=== PATIENT | male | born 1940 | race African-American/Black ===

== ENCOUNTER 2017-04-17 11:36 | Inpatient (IN) | payer MEDICARE, OTHER ==
[~2017-04-17] VITALS: Ht 170.2 cm; Wt 72.6 kg
[~2017-04-17 11:36] MED LIST: ARICEPT5 MG ORAL; ATIVAN1 MG PO; AZITHROMYCIN250 MG ORAL; BACTROBAN 2% OI15 GM TOPIC; DEPAKENE250 MG/5 M PO; DSS100 MG ORAL; FERROUS SULFAT325 MG ORAL; GLUCOPHAGE500 MG ORAL; HPN PO; LANTUS5 UNITS SUBQ; LEVEMIR100 UNIT/1 SUBQ; LISINOPRIL20 MG ORAL; METOPROLOL TAR100 MG PO; MIRTAZAPINE7.5 MG ORAL; NORVASC10 MG ORAL; NOVOLIN R100 UNIT/1 SUBQ; PROAIR HFA8.5 GM INH; PROMETHAZINE-C118 M1 ORAL; TYLENOL 8 HOUR650 M1 ORAL; VIMPAT150 MG PO
[2017-04-17 11:40] VITALS: BP 132/74
[2017-04-17] MEDS ORDERED: Vancomycin 1 GM in NS 275 ML IV ONE (11:45)
[2017-04-17] MEDS ORDERED: Vancomycin 1gm inj IVPB ONE (12:19)
[2017-04-17 12:52] LABS: MEAN CORPUSCULAR HEMOGLOBIN 27.4 PG (27.0-31.0); MEAN CORPUSCULAR HGB CONC 29.9 G/DL (32.0-36.0); MEAN CORPUSCULAR VOLUME 92 FL (80-99); MEAN PLATELET VOLUME 7.9 FL (6.5-10.1); PLATELET COUNT 309 K/UL (150-450); RED BLOOD COUNT 5.47 M/UL (4.70-6.10); RED CELL DISTRIBUTION WIDTH 16.2 % (11.6-14.8)
[2017-04-17 13:00] LABS: WHITE BLOOD COUNT 25.4 K/UL (4.8-10.8)
[2017-04-17 13:04] LABS: APPEARANCE,URINE TURBID; KETONES,URINE 1+ (NEGATIVE); LEUKOCYTE ESTERASE ,URINE 3+ (NEGATIVE); NITRITE,URINE NEGATIVE (NEGATIVE); PH,URINE 7 (4.5-8.0); PROTEIN,URINE 3+ (NEGATIVE); UROBILINOGEN,URINE NORMAL MG/DL (0.0-1.0)
--- NOTE | 2017-04-17 13:06 | Emergency Room Report ---
History of Present Illness General Chief Complaint: Abnormal Labs Source: Patient, Medical Record, PMD Present Illness HPI 77YOM male sent by PMD Dr Aguilar for concern for UTI with + proteus and MRSA Patient has no complaints Feels well otherwise Paperwork from SNF shows Urine Cx recent with + proteus and MRSA. Susceptible to Vanc/Zosyn per outside Culture sensitivity Allergies: Coded Allergies: No Known Allergies (Unverified , 01/20/13) Patient History Past Medical History: see triage record Past Surgical History: none Pertinent Family History: none Immunizations: UTD Reviewed Nursing Documentation: PMH: Agreed, PSxH: Agreed Nursing Documentation-PMH Hx Cardiac Problems: Yes Hx Hypertension: Yes Hx COPD: Yes Hx Diabetes: Yes Hx Cancer: No - / PT DENIES, ALTHO IN MEDICAL RECORD Hx Gastrointestinal Problems: No Hx Neurological Problems: Yes Hx Cerebrovascular Accident: Yes - INTRACRANIAL HEMORRHAGE Hx Dementia: Yes Hx Seizures: Yes Hx Dizziness: Yes Hx Syncope: Yes Hx Weakness: Yes Review of Systems All Other Systems: negative except mentioned in HPI Physical Exam Vital Signs Date Time Temp Pulse Resp B/P (MAP) Pulse Ox O2 Delivery O2 Flow Rate FiO2 04/17/17 11:30 98.2 109 20 150/91 97 Room Air Sp02 EP Interpretation: reviewed, normal General Appearance: normal inspection, well appearing, no apparent distress, alert, GCS 15, non-toxic Head: normocephalic, atraumatic Eyes: bilateral eye PERRL, bilateral eye EOMI ENT: normal ENT inspection, hearing grossly normal, normal voice Neck: normal inspection, full range of motion, supple, no bony tend Respiratory: normal inspection, lungs clear, normal breath sounds, no respiratory distress, no retraction, no wheezing Cardiovascular #1: regular rate, rhythm, no edema Gastrointestinal: normal inspection, normal bowel sounds, non tender, soft, no guarding, no hernia Genitourinary: no CVA tenderness Musculoskeletal: normal inspection, back normal, normal range of motion, Catherine' s Sign negative Neurologic: normal inspection, alert, responsive, senior asset manager III-XII nml as tested, motor strength/tone normal, speech normal Psychiatric: normal inspection, judgement/insight normal, mood/affect normal Skin: normal inspection, normal color, no rash Medical Decision Making Medicare Attestation I Brian Min MD hereby attest that the medical record entry for date of service, 04/17/17 accurately reflects signatures/notations that I made in my capacity as MD when I treated/diagnosed the above listed Medicare beneficiary. I attest that this information is true, accurate and complete to the best of my knowledge. I understand that any falsification, omission, or concealment of material fact may subject me to administrative, civil, or criminal liability. This patient warrants hospital admission for extreme of age and has a condition that cannot be treated as outpatient. Diagnostic Impression: Primary Impression: UTI (urinary tract infection) Qualified Codes: N30.01 - Acute cystitis with hematuria Additional Impressions: Sepsis Qualified Codes: A41.9 - Sepsis, unspecified organism PROSPER (acute kidney injury) ER Course Urosepsis Known UTI with sensitivies down outside hospital Here, tachycardia, fever, known infection Sepsis criteria met Blood, Urine Cx pending Leuks >20K, elevated lactate. ?PROSPER vs prosper on CKD. IVF 30cc/kg bolus and tylenol given Endorsed Dr Aguilar for tele admit at 104pm EKG Diagnostic Results Rate: tachycardiac Rhythm: NSR ST Segments: no acute changes ASA given to the pt in ED: No Rhythm Strip Diag. Results EP Interpretation: yes Rate: 103 Rhythm: NSR, no PVC's, no ectopy Chest X-Ray Diagnostic Results Chest X-Ray Diagnostic Results : Chest X-Ray Ordered: Yes # of Views/Limited/Complete: 1 View Indication: Other - Sepsis EP Interpretation: Yes Interpretation: no consolidation, no effusion, no pneumothorax, no acute cardiopulmonary disease Impression: No acute disease Electronically Signed by: Dr Brian Min MD Last Vital Signs Date Time Temp Pulse Resp B/P (MAP) Pulse Ox O2 Delivery O2 Flow Rate FiO2 04/17/17 11:40 100.1 105 21 132/74 97 Room Air Status: improved Disposition: ADMITTED INPATIENT Condition: Serious Referrals: Kortney Huynh MD (PCP) BRIAN MIN M.D. Apr 17, 2017 13:06
[2017-04-17 13:16] LABS: REFLEX LACTIC ACID YES OR NO YES
[2017-04-17 13:19] LABS: ANION GAP 15 mmol/L (5-15); CALCIUM 9.2 MG/DL (8.5-10.1); CARBON DIOXIDE 26 MMOL/L (21-32); CHLORIDE 103 MMOL/L (98-107); CREATININE 1.4 MG/DL (0.55-1.30); POTASSIUM 4.6 MMOL/L (3.5-5.1); SODIUM 144 MMOL/L (136-145)
[2017-04-17 13:27] LABS: ALANINE AMINOTRANSFERASE 28 U/L (12-78); ALBUMIN/GLOBULIN RATIO 0.5 (1.0-2.7); ASPARTATE AMINO TRANSFERASE 24 U/L (15-37); CKMB 0.6 NG/ML (0.0-3.6); TOTAL PROTEIN 8.8 G/DL (6.4-8.2)
[2017-04-17 13:31] LABS: BACTERIA,URINE MANY /HPF; RBC,URINE 30-40 /HPF (0 - 0); SQUAMOUS EPITHELIAL CELL,UR FEW /LPF (NONE/OCC); WBC,URINE 40-60 /HPF (0 - 0)
[2017-04-17 13:32] LABS: TRIPLE PHOSPHATE CRYSTAL,UR MANY /LPF
[2017-04-17] MEDS ORDERED: UNOBMED (13:34)
[2017-04-17 13:38] LABS: ANISOCYTOSIS 1+; BAND NEUTROPHILS % (MANUAL) 1 % (0-8); BASOPHILS % (MANUAL) 0 % (0-2); EOSINOPHILS % (MANUAL) 0 % (0-3); LYMPHOCYTES % (MANUAL) 12 % (20-45); NEUTROPHILS % (MANUAL) 80 % (45-75); PLATELET ESTIMATE ADEQUATE; PLATELET MORPHOLOGY NORMAL; TOTAL CELLS COUNTED 100
[2017-04-17 13:40] VITALS: BP 140/78
--- NOTE | 2017-04-17 13:58 | Diagnostic Imaging Report ---
Indication: Cough Technique: One view of the chest Comparison: 01/04/2016 Findings: Lungs and pleural spaces are clear. Heart size is normal. No significant change Impression: No acute process
[2017-04-17] MEDS ORDERED: Piperacillin/Tazobactam 4.5 GM in NS 110 ML IV SCH (14:00)
[2017-04-17 15:48] VITALS: BP 124/70
[2017-04-17] MEDS: LORazepam 1mg tab ORAL SCH (17:45)
[2017-04-17 20:00] VITALS: BP 125/86
[2017-04-17] MEDS: Donepezil 5mg Tab ORAL SCH (21:55)
[2017-04-18] VITALS: BP 134/78
[2017-04-18 04:00] VITALS: BP 117/73
[2017-04-18 07:47] LABS: BASOPHILS % (AUTO) 1.1 % (0.0-2.0); EOSINOPHILS % (AUTO) 1.3 % (0.0-3.0); LYMPHOCYTES % (AUTO) 14.3 % (20.0-45.0); MEAN CORPUSCULAR HEMOGLOBIN 29.2 PG (27.0-31.0); MEAN CORPUSCULAR HGB CONC 31.9 G/DL (32.0-36.0); MEAN CORPUSCULAR VOLUME 92 FL (80-99); MEAN PLATELET VOLUME 7.5 FL (6.5-10.1); MONOCYTES % (AUTO) 10.6 % (1.0-10.0); NEUTROPHILS % (AUTO) 72.7 % (45.0-75.0); PLATELET COUNT 261 K/UL (150-450); RED BLOOD COUNT 3.83 M/UL (4.70-6.10); RED CELL DISTRIBUTION WIDTH 16.3 % (11.6-14.8); WHITE BLOOD COUNT 16.2 K/UL (4.8-10.8)
[2017-04-18 08:08] LABS: ANION GAP 8 mmol/L (5-15); CALCIUM 8.8 MG/DL (8.5-10.1); CARBON DIOXIDE 30 MMOL/L (21-32); CHLORIDE 107 MMOL/L (98-107); CREATININE 1.3 MG/DL (0.55-1.30); POTASSIUM 3.7 MMOL/L (3.5-5.1); SODIUM 145 MMOL/L (136-145)
[2017-04-18 08:14] VITALS: BP 130/68
--- NOTE | 2017-04-18 08:15 | History and Physical Report ---
DATE OF ADMISSION: 04/17/2017 REASON FOR ADMISSION: Recent urinary tract infection. The patient has advanced dementia, is a poor historian, cannot rely upon his history. The patient grew multiple organisms at the snf which was resistant to most antibiotics. The patient is admitted for IV antibiotics. Again, cannot obtain any further history from the patient. PAST MEDICAL HISTORY: Advanced dementia, iron-deficiency anemia, seizure disorder, anxiety, depression, GERD, history of borderline diabetes, history of sinus bradycardia, history of hyperkalemia, history of chronic renal failure, history of syncope, and hypertension. PAST SURGICAL HISTORY: Denies. MEDICATIONS: Colace, donepezil, ferrous sulfate, lisinopril, lorazepam, mirtazapine, and Depakote. ALLERGIES: No known allergies. FAMILY HISTORY: Noncontributory. SOCIAL HISTORY: Denies smoking, alcohol, or illicit drugs. He lives in a snf. REVIEW OF SYSTEMS: HEENT: Denies headaches. RESPIRATORY: Denies shortness of breath. Denies cough. CARDIOVASCULAR: Denies chest pain. GASTROINTESTINAL: Denies nausea, vomiting, or diarrhea. EXTREMITIES: Denies pain. CENTRAL NERVOUS SYSTEM: No change in vision or speech pattern, however, he is a poor historian. PHYSICAL EXAMINATION: VITAL SIGNS: Temperature is 100.1, pulse is 105, and blood pressure 132/74. HEENT: PERRLA. NECK: Supple. No lymphadenopathy. CHEST: Clear to auscultation. GASTROINTESTINAL: Soft, nontender, and nondistended. No organomegaly. EXTREMITIES: Reflexes are equal on both sides. Moves all 4 extremities. LABORATORY DATA: WBC of , hemoglobin 15, and platelets 309,000. Sodium 144, potassium 4.6, BUN of 39, and creatinine 1.5. ASSESSMENT: Sepsis. PLAN: will see the patient for sepsis. I have asked Dr. Cunningham to see the patient for azotemia. . patient's adjustment to multiple antibiotics and we will defer the decision making of antibiotics to . Kortney Huynh M.D. DR: QAMAR JOB#: [id number] CC:
--- NOTE | 2017-04-18 08:16 | Consultation ---
DATE OF CONSULTATION: 04/17/2017 HEMATOLOGY/ONCOLOGY CONSULTATION REASON FOR CONSULTATION: Evaluation of leukocytosis. IDENTIFICATION DATA: Dear Dr. Huynh, The patient is a pleasant 77-year-old male with a past medical history, which is significant for history of UTI as well as CEA, intracranial hemorrhage history, history of diabetes mellitus, COPD as well as hypertension, and seizure history in the past, at this time presents to the hospital with most likely sepsis, noted to have a UTI with Proteus, MRSA. Infectious Diseases service was consulted for further evaluation and treatment. Hematology service was consulted inpatient for leukocytosis to rule out any potential cause or any other contributing factor such as leukemia. PAST MEDICAL HISTORY: Diabetes mellitus, hypertension, COPD, seizure disorder, intracranial hemorrhage, and dementia. PAST SURGICAL HISTORY: None noted. MEDICATIONS: Have been reviewed, mupirocin, ferrous sulfate, valproic acid, , Tylenol, lisinopril, Colace, , amiodarone, promethazine, and Zithromax. SOCIAL HISTORY: Resident of a penit[facility]iary facility. No alcohol, tobacco, or illicit drug use. REVIEW OF SYSTEMS: CONSTITUTIONAL: No fever, chills, or night sweats. SKIN: No rashes, bumps, or itching. HEENT: No headache, hearing or vision changes. BREASTS: No lumps, pain, or discharge. PULMONARY: No cough, sputum, or shortness of breath. GASTROINTESTINAL: No nausea, vomiting, or diarrhea. GENITOURINARY: No dysuria, frequency, or urgency. MUSCULOSKELETAL: No joint swelling, muscle pain, or trauma. PHYSICAL EXAMINATION: GENERAL: No acute distress. VITAL SIGNS: Reviewed. PULMONARY: Decreased breath sounds. CARDIOVASCULAR: Regular rate. No S3 or S4. ABDOMEN: Soft, nontender, and nondistended. EXTREMITIES: A 1+ edema. LABORATORY DATA: WBC 25,000, hemoglobin 15, hematocrit 50, and platelet count 309,000. ASSESSMENT AND RECOMMENDATIONS: 1. Leukocytosis, most likely secondary to infectious etiology of urinary tract infection, currently on antibiotics. 2. Anemia secondary to chronic disease history. In the past, hemoglobin has been 9, currently improved, currently on 15, likely secondary to hemoconcentration. 3. Diabetes mellitus. Continue to maintain blood sugar between 80 and 120. A1c obtained. 4. Hypertension, currently better controlled. 5. Chronic obstructive pulmonary disease. 6. Seizure disorder. Continue to closely monitor. I appreciate the consultation. Miguelito Mayen M.D. DR: DEEP JOB#: [id number] CC:
[2017-04-18] MEDS: LORazepam 1mg tab ORAL SCH ×2 (09:59→18:15)
[2017-04-18] MEDS: Valproic Acid 250mg/5ml Liquid NG SCH ×3 (10:00→16:44)
--- NOTE | 2017-04-18 11:07 | Wound Care Consultation ---
Wound Assessment Wound Assessment #1: Wound Number: 1 Wound Present on Admission: Yes New Wound: No Status Change of Wound: No Wound Location Body Site Modif: mid Wound Location Body Site: sacral Wound Type: pressure ulcer Glen Test: Does not Glen Pressure Ulcer Stage: Unstageable Wound Thickness: Full Thickness Wound Length: 2.0 Wound Width: 2.5 Wound Depth: utd Percent of Wound [place]/Red: 30 Percent of Wound Bed Yellow/Wh: 50 Percent of Wound Purple/Maroon: 20 Wound Drainage Description: Serosanguineous Wound Drainage Amount: Moderate Wound Drainage Odor: None/Absent Tissue Surrounding Wound: Macerated Wound General Appearance: Reddened - yellow Wound Assessment #2: Wound Number: 2 Wound Present on Admission: Yes New Wound: No Status Change of Wound: No Wound Location Body Site Modif: right Wound Location Body Site: heel Wound Type: pressure ulcer Glen Test: Does not Glen Pressure Ulcer Stage: Deep Tissue Injury Wound Thickness: Full Thickness Wound Length: 2.5 Wound Width: 2.0 Wound Depth: utd Percent of Wound Purple/Maroon: 100 Wound Drainage Amount: None Wound Drainage Odor: None/Absent Tissue Surrounding Wound: Intact Wound General Appearance: Reddened Wound Comment #1 Sacral unstageable pressure ulcer #2 Right heel DTI pressure ulcer Recommendation - Sacral unstageable pressure ulcer, Cleanse with saline, pat dry, apply Therahoney gel to wound bed, cover with Biatain silicone drg daily and PRN soiled/dislodged -Local wound care per protocol for DTI pressure ulcer -Keep clean and dry -Turn and reposition -Optimize nutrition -Offload both heels -Heel protector on both heels -Low air loss mattress -Assess and f/u accordingly for any changes HAYLEE HORVATH RN Apr 18, 2017 11:07
[2017-04-18 11:19] VITALS: BP 144/79
[2017-04-18 12:49] LABS: OTHERS PATHOLOGIST COMMENT
[2017-04-18] MEDS ORDERED: Vancomycin 1250mg/D5W 250ml IVPB SCH (14:00)
[2017-04-18 16:00] VITALS: BP 147/68
--- NOTE | 2017-04-18 16:18 | General Progress Note ---
Assessment/Plan Assessment/Plan ASSESSMENT AND RECOMMENDATIONS: 1. Leukocytosis, most likely secondary to infectious etiology of urinary tract infection, currently on antibiotics. Has improved. 2. Anemia secondary to chronic disease history. 3. Diabetes mellitus. Continue to maintain blood sugar between 80 and 120. A1c obtained. 4. Hypertension, currently better controlled. 5. Chronic obstructive pulmonary disease. 6. Seizure disorder. Continue to closely monitor. Subjective ROS Limited/Unobtainable: Yes Allergies: Coded Allergies: No Known Allergies (Unverified , 01/20/13) Subjective sleeping Objective Last 24 Hour Vital Signs Date Time Temp Pulse Resp B/P (MAP) Pulse Ox O2 Delivery O2 Flow Rate FiO2 04/18/17 16:00 97.2 91 20 147/68 96 Room Air 04/18/17 12:00 85 04/18/17 11:19 96.3 86 20 144/79 99 Room Air 04/18/17 10:00 79 130/68 04/18/17 08:14 96.6 79 20 130/68 99 Room Air 04/18/17 08:00 87 04/18/17 04:00 97.9 87 20 117/73 100 Room Air 04/18/17 03:46 84 04/18/17 00:00 98.2 90 19 134/78 99 Room Air 04/17/17 23:50 97 04/17/17 20:00 98.2 88 19 125/86 98 Room Air 04/17/17 19:53 87 Intake and Output 04/18/17 04/19/17 19:00 07:00 # Bowel Movements 1 Laboratory Tests 04/18/17 07:00: White Blood Count 16.2H, Red Blood Count 3.83L, Hemoglobin 11.2L, Hematocrit 35.1#L, Mean Corpuscular Volume 92, Mean Corpuscular Hemoglobin 29.2, Mean Corpuscular Hemoglobin Concent 31.9L, Red Cell Distribution Width 16.3H, Platelet Count 261, Mean Platelet Volume 7.5, Neutrophils (%) (Auto) 72.7, Lymphocytes (%) (Auto) 14.3L, Monocytes (%) (Auto) 10.6H, Eosinophils (%) (Auto ) 1.3, Basophils (%) (Auto) 1.1, Sodium Level 145, Potassium Level 3.7, Chloride Level 107, Carbon Dioxide Level 30, Anion Gap 8, Blood Urea Nitrogen 27H, Creatinine 1.3, Estimat Glomerular Filtration Rate , Glucose Level 121H, Calcium Level 8.8 Height (Feet): 5 Height (Inches): 7.00 Weight (Pounds): 160 General Appearance: no apparent distress EENT: normal ENT inspection Neck: non-tender, normal alignment Cardiovascular: normal peripheral pulses, no gallop/murmur Respiratory/Chest: decreased breath sounds Abdomen: non tender Extremities: non-tender Miguelito Mayen Apr 18, 2017 16:18
--- NOTE | 2017-04-18 17:15 | Consultation ---
DATE OF CONSULTATION: INFECTIOUS DISEASE CONSULTATION CONSULTING PHYSICIAN: Shaun Lucero M.D. This consultation is for coverage of Dr. Montanez. PRIMARY ATTENDING PHYSICIAN: Kortney Huynh M.D. REASON FOR CONSULTATION: Urinary tract infection. HISTORY OF PRESENT ILLNESS: This is a 77-year-old male admitted yesterday from a alf facility. The patient apparently had a recent urine culture that grew MRSA and Proteus mirabilis. He has suprapubic catheter. The patient had low-grade fever of 101.1 degrees at the time admission. Also, had significant leukocytosis. PAST MEDICAL HISTORY: Significant for dementia, diabetes mellitus, hypertension, anemia, history of suprapubic catheter. MEDICATIONS: The patient got a dose of vancomycin and Zosyn in the ER. Current medications are ferrous sulfate, multivitamin, amlodipine, valproic acid, Protonix, Aricept, Keppra, Remeron, Seroquel, lorazepam, Tylenol. ALLERGIES: No known drug allergies. SOCIAL HISTORY: long term resident. No other history obtainable. He is a . PHYSICAL EXAMINATION: GENERAL APPEARANCE: No acute distress, alert and oriented to himself only. VITAL SIGNS: Temperature 96.3 degrees, pulse 86, blood pressure 144/79. HEAD AND NECK: [place] conjunctivae. HEART: Regular. LUNGS: Clear. ABDOMEN: Soft and nontender. There is a suprapubic catheter in place. EXTREMITIES: There is no edema. The patient has peripheral line. LABORATORY AND DIAGNOSTIC DATA: WBC today is 16.2 coming down from 25.4, hemoglobin 11.2, hematocrit 35.1, platelets 261. Chest x-ray did not show any acute process. Sodium is 145, potassium 3.7, chloride 107, bicarbonate 30, BUN 27, creatinine 1.3, glucose 121. Lactic acid was 3.9 that came to 1.9. Urine culture growing gram-negative bacilli IMPRESSION: Complicated urinary tract infection. The patient has suprapubic catheter. The patient has low-grade fever and leukocytosis, has advanced Alzheimer dementia, anemia, acute renal failure, chronic kidney disease, and hypertension. RECOMMENDATION: We will start the patient on ceftriaxone and vancomycin. We will followup the cultures At the end of my exam, I thank Dr. Huynh for involving me in the care of this patient. Shaun Lucero M.D. DR: Jacquelin JOB#: [id number] CC:
[2017-04-18] MEDS: cefTRIAXone 1 GM in D5W 55 ML IVPB SCH (18:05)
[2017-04-18 20:02] VITALS: BP 129/77
--- NOTE | 2017-04-18 20:38 | General Progress Note ---
Assessment/Plan Problem List: (1) UTI (urinary tract infection) ICD Codes: N39.0 - Urinary tract infection, site not specified SNOMED: 79385797 Qualifiers: Qualified Codes: N30.01 - Acute cystitis with hematuria (2) Sepsis ICD Codes: A41.9 - Sepsis, unspecified organism SNOMED: 38106962 Qualifiers: Qualified Codes: A41.9 - Sepsis, unspecified organism (3) PROSPER (acute kidney injury) ICD Codes: N17.9 - Acute kidney failure, unspecified SNOMED: 86593029 Status: progressing Assessment/Plan sepsis and uti abx per id afebrile vitals stable borderline dm no acute events Subjective ROS Limited/Unobtainable: Yes Allergies: Coded Allergies: No Known Allergies (Unverified , 01/20/13) Objective Last 24 Hour Vital Signs Date Time Temp Pulse Resp B/P (MAP) Pulse Ox O2 Delivery O2 Flow Rate FiO2 04/18/17 20:02 98.0 82 20 129/77 98 Room Air 04/18/17 16:00 97.2 91 20 147/68 96 Room Air 04/18/17 16:00 89 04/18/17 12:00 85 04/18/17 11:19 96.3 86 20 144/79 99 Room Air 04/18/17 10:00 79 130/68 04/18/17 08:14 96.6 79 20 130/68 99 Room Air 04/18/17 08:00 87 04/18/17 04:00 97.9 87 20 117/73 100 Room Air 04/18/17 03:46 84 04/18/17 00:00 98.2 90 19 134/78 99 Room Air 04/17/17 23:50 97 Intake and Output 04/18/17 04/19/17 19:00 07:00 Intake Total 260 ml Output Total 600 ml Balance -340 ml Intake Oral 260 ml Output Urine Total 600 ml # Bowel Movements 1 Laboratory Tests 04/18/17 07:00: White Blood Count 16.2H, Red Blood Count 3.83L, Hemoglobin 11.2L, Hematocrit 35.1#L, Mean Corpuscular Volume 92, Mean Corpuscular Hemoglobin 29.2, Mean Corpuscular Hemoglobin Concent 31.9L, Red Cell Distribution Width 16.3H, Platelet Count 261, Mean Platelet Volume 7.5, Neutrophils (%) (Auto) 72.7, Lymphocytes (%) (Auto) 14.3L, Monocytes (%) (Auto) 10.6H, Eosinophils (%) (Auto ) 1.3, Basophils (%) (Auto) 1.1, Sodium Level 145, Potassium Level 3.7, Chloride Level 107, Carbon Dioxide Level 30, Anion Gap 8, Blood Urea Nitrogen 27H, Creatinine 1.3, Estimat Glomerular Filtration Rate , Glucose Level 121H, Calcium Level 8.8 Height (Feet): 5 Height (Inches): 7.00 Weight (Pounds): 160 EENT: PERRL/EOMI Neck: supple Cardiovascular: normal rate Kortney Huynh MD Apr 18, 2017 20:38
[2017-04-18] MEDS: Donepezil 5mg Tab ORAL SCH (23:02)
[2017-04-19] VITALS: BP 128/74
[2017-04-19 04:00] VITALS: BP 143/83
[2017-04-19] MEDS: Valproic Acid 250mg/5ml Liquid NG SCH ×3 (06:26→17:18)
[2017-04-19] MEDS: LORazepam 1mg tab ORAL SCH ×2 (09:21→17:18)
[2017-04-19 10:24] LABS: EOSINOPHILS % (AUTO) 1.8 % (0.0-3.0); LYMPHOCYTES % (AUTO) 21.3 % (20.0-45.0); MEAN CORPUSCULAR HEMOGLOBIN 28.5 PG (27.0-31.0); MEAN CORPUSCULAR HGB CONC 30.8 G/DL (32.0-36.0); MEAN CORPUSCULAR VOLUME 93 FL (80-99); MEAN PLATELET VOLUME 8.1 FL (6.5-10.1); MONOCYTES % (AUTO) 9.1 % (1.0-10.0); NEUTROPHILS % (AUTO) 65.7 % (45.0-75.0); PLATELET COUNT 272 K/UL (150-450); RED BLOOD COUNT 3.85 M/UL (4.70-6.10); WHITE BLOOD COUNT 12.2 K/UL (4.8-10.8)
[2017-04-19 10:35] LABS: ANION GAP 10 mmol/L (5-15); CARBON DIOXIDE 30 MMOL/L (21-32); CHLORIDE 105 MMOL/L (98-107); CREATININE 1.2 MG/DL (0.55-1.30); POTASSIUM 3.8 MMOL/L (3.5-5.1); SODIUM 145 MMOL/L (136-145)
--- NOTE | 2017-04-19 11:05 | Infectious Diseases Prog Note ---
Assessment/Plan Assessment/Plan A; Complicated UTI ARF, Chronic kidney disease Alzheimer dementia P; Continue Rocephin, discontinue Vancomycin Will f/u cultures Subjective ROS Limited/Unobtainable: Yes Allergies: Coded Allergies: No Known Allergies (Unverified , 01/20/13) Objective Vital Signs Last 24 Hour Vital Signs Date Time Temp Pulse Resp B/P (MAP) Pulse Ox O2 Delivery O2 Flow Rate FiO2 04/19/17 09:21 77 143/83 04/19/17 04:00 77 04/19/17 04:00 97.7 89 18 143/83 93 Room Air 04/19/17 00:00 98.2 68 18 128/74 99 Room Air 04/19/17 00:00 66 04/18/17 20:02 98.0 82 20 129/77 98 Room Air 04/18/17 20:00 83 04/18/17 16:00 97.2 91 20 147/68 96 Room Air 04/18/17 16:00 89 04/18/17 12:00 85 04/18/17 11:19 96.3 86 20 144/79 99 Room Air Height (Feet): 5 Height (Inches): 7.00 Weight (Pounds): 160 General Appearance: no acute distress HEENT: mucous membranes moist Respiratory/Chest: lungs clear Cardiovascular: normal rate Abdomen: soft, non tender Genitourinary: other - suprapubic catheter Extremities: no edema Neurologic/Psychiatric: other - sleeping Microbiology Date/Time Source Procedure Growth Status 04/17/17 12:30 Blood Blood Culture - Preliminary NO GROWTH AFTER 24 HOURS Resulted 04/17/17 12:15 Blood Blood Culture - Preliminary NO GROWTH AFTER 24 HOURS Resulted 04/17/17 11:55 Urine,Clean Catch Urine Culture - Preliminary Proteus Mirabilis Gram Negative Bacillus 2 Resulted 04/17/17 13:40 Rectum VRE Culture - Final NO VANCOMYCIN RESISTANT ENTEROCOCCUS ... Complete Laboratory Tests Test 04/19/17 09:40 White Blood Count 12.2 K/UL (4.8-10.8) H Red Blood Count 3.85 M/UL (4.70-6.10) L Hemoglobin 11.0 G/DL (14.2-18.0) L Hematocrit 35.7 % (42.0-52.0) L Mean Corpuscular Volume 93 FL (80-99) Mean Corpuscular Hemoglobin 28.5 PG (27.0-31.0) Mean Corpuscular Hemoglobin Concent 30.8 G/DL (32.0-36.0) L Red Cell Distribution Width 16.0 % (11.6-14.8) H Platelet Count 272 K/UL (150-450) Mean Platelet Volume 8.1 FL (6.5-10.1) Neutrophils (%) (Auto) 65.7 % (45.0-75.0) Lymphocytes (%) (Auto) 21.3 % (20.0-45.0) Monocytes (%) (Auto) 9.1 % (1.0-10.0) Eosinophils (%) (Auto) 1.8 % (0.0-3.0) Basophils (%) (Auto) 2.0 % (0.0-2.0) Sodium Level 145 MMOL/L (136-145) Potassium Level 3.8 MMOL/L (3.5-5.1) Chloride Level 105 MMOL/L (98-107) Carbon Dioxide Level 30 MMOL/L (21-32) Anion Gap 10 mmol/L (5-15) Blood Urea Nitrogen 20 mg/dL (7-18) H Creatinine 1.2 MG/DL (0.55-1.30) Estimat Glomerular Filtration Rate mL/min (>60) Glucose Level 126 MG/DL (74-106) H Calcium Level 9.0 MG/DL (8.5-10.1) Current Medications Medications (Trade) Dose Ordered Sig/[place] Route PRN Reason Start Time Stop Time Status Last Admin Dose Admin Acetaminophen (Tylenol) 650 mg Q6H PRN ORAL Mild Pain/Temp > 100.5 04/17/17 17:30 05/17/17 17:29 Amlodipine Besylate (Norvasc) 5 mg DAILY ORAL 04/18/17 09:00 05/18/17 08:59 04/19/17 09:21 Ceftriaxone Sodium 1 gm/ Dextrose 55 ml @ 110 mls/hr Q24H IVPB 04/18/17 17:00 04/25/17 16:59 04/18/17 18:05 Donepezil HCl (Aricept) 5 mg QHS ORAL 04/17/17 21:00 05/17/17 20:59 11/16/17 23:02 Ferrous Sulfate (Feosol) 325 mg DAILY ORAL 04/18/17 09:00 05/18/17 08:59 04/19/17 09:21 Levetiracetam (Keppra) 750 mg Q12HR ORAL 04/17/17 21:00 05/17/17 20:59 04/19/17 09:21 Lorazepam (Ativan) 1 mg BID ORAL 04/17/17 18:00 04/24/17 17:59 04/19/17 09:21 Mirtazapine (Remeron) 7.5 mg BEDTIME ORAL 04/17/17 21:00 05/17/17 20:59 04/18/17 23:02 Multivitamins (Multivitamins) 1 tab DAILY ORAL 04/18/17 09:00 05/18/17 08:59 04/19/17 09:21 Pantoprazole (Protonix) 40 mg BEFORE BREAKFAST ORAL 04/18/17 06:30 05/18/17 06:29 04/19/17 06:26 Quetiapine Fumarate (SEROquel) 12.5 mg BEDTIME ORAL 04/17/17 21:00 05/17/17 20:59 04/18/17 23:03 Valproic Acid (Depakene) 500 mg TIAC NG 04/18/17 08:30 05/18/17 08:29 04/19/17 06:26 Vancomycin HCl (Vanco rx to dose) 1 ea DAILY PRN MISC Per rx protocol 04/18/17 12:45 05/18/17 12:44 Vancomycin HCl/ Dextrose 250 ml @ 166.667 mls/hr Q24H IVPB 04/18/17 14:00 04/23/17 13:59 04/18/17 14:00 DANNI DAO Apr 19, 2017 11:05
[2017-04-19 12:00] VITALS: BP 130/73
[2017-04-19 16:00] VITALS: BP 142/73
--- NOTE | 2017-04-19 17:06 | General Progress Note ---
Assessment/Plan Assessment/Plan ASSESSMENT AND RECOMMENDATIONS: 1. Leukocytosis, most likely secondary to infectious etiology of urinary tract infection, currently on antibiotics. Has improved. 2. Anemia secondary to chronic disease history. Continue to watch counts. 3. Diabetes mellitus. Continue to maintain blood sugar between 80 and 120. A1c obtained. 4. Hypertension, currently better controlled. 5. Chronic obstructive pulmonary disease. 6. Seizure disorder. Continue to closely monitor. Subjective ROS Limited/Unobtainable: Yes Allergies: Coded Allergies: No Known Allergies (Unverified , 01/20/13) Subjective no events overnight, afebrile, no bleeding reported Objective Last 24 Hour Vital Signs Date Time Temp Pulse Resp B/P (MAP) Pulse Ox O2 Delivery O2 Flow Rate FiO2 04/19/17 16:00 96.2 96 19 142/73 97 Room Air 04/19/17 12:00 97.4 85 18 130/73 96 Room Air 04/19/17 12:00 82 04/19/17 09:21 77 143/83 04/19/17 08:00 85 04/19/17 04:00 77 04/19/17 04:00 97.7 89 18 143/83 93 Room Air 04/19/17 00:00 98.2 68 18 128/74 99 Room Air 04/19/17 00:00 66 04/18/17 20:02 98.0 82 20 129/77 98 Room Air 04/18/17 20:00 83 Intake and Output 04/19/17 04/20/17 19:00 07:00 Intake Total 150 ml Output Total 450 ml Balance -300 ml Intake Oral 150 ml Output Urine Total 450 ml Laboratory Tests 04/19/17 09:40: White Blood Count 12.2H, Red Blood Count 3.85L, Hemoglobin 11.0L, Hematocrit 35.7L, Mean Corpuscular Volume 93, Mean Corpuscular Hemoglobin 28.5, Mean Corpuscular Hemoglobin Concent 30.8L, Red Cell Distribution Width 16.0H, Platelet Count 272, Mean Platelet Volume 8.1, Neutrophils (%) (Auto) 65.7, Lymphocytes (%) (Auto) 21.3, Monocytes (%) (Auto) 9.1, Eosinophils (%) (Auto) 1.8, Basophils (%) (Auto) 2.0, Sodium Level 145, Potassium Level 3.8, Chloride Level 105, Carbon Dioxide Level 30, Anion Gap 10, Blood Urea Nitrogen 20H, Creatinine 1.2, Estimat Glomerular Filtration Rate , Glucose Level 126H, Calcium Level 9.0 Height (Feet): 5 Height (Inches): 7.00 Weight (Pounds): 160 General Appearance: no apparent distress EENT: normal ENT inspection Neck: normal alignment Cardiovascular: normal peripheral pulses Respiratory/Chest: chest wall non-tender Abdomen: soft Neurologic: road supervisor II-XII grossly normal Miguelito Mayen Apr 19, 2017 17:06
[2017-04-19] MEDS: cefTRIAXone 1 GM in D5W 55 ML IVPB SCH (17:18)
[2017-04-19 20:00] VITALS: BP 143/73
[2017-04-19] MEDS: Donepezil 5mg Tab ORAL SCH (20:40)
--- NOTE | 2017-04-19 20:55 | General Progress Note ---
Assessment/Plan Problem List: (1) UTI (urinary tract infection) ICD Codes: N39.0 - Urinary tract infection, site not specified SNOMED: 74887212 Qualifiers: Qualified Codes: N30.01 - Acute cystitis with hematuria (2) Sepsis ICD Codes: A41.9 - Sepsis, unspecified organism SNOMED: 35399420 Qualifiers: Qualified Codes: A41.9 - Sepsis, unspecified organism (3) PROSPER (acute kidney injury) ICD Codes: N17.9 - Acute kidney failure, unspecified SNOMED: 42043912 Status: progressing Assessment/Plan sepsis and uti leukocytosis is improving afebrile no acute events reviewed chart and labs Subjective ROS Limited/Unobtainable: Yes Allergies: Coded Allergies: No Known Allergies (Unverified , 01/20/13) Objective Last 24 Hour Vital Signs Date Time Temp Pulse Resp B/P (MAP) Pulse Ox O2 Delivery O2 Flow Rate FiO2 04/19/17 20:00 98.2 99 19 143/73 97 Room Air 04/19/17 16:00 96.2 96 19 142/73 97 Room Air 04/19/17 16:00 82 04/19/17 12:00 97.4 85 18 130/73 96 Room Air 04/19/17 12:00 82 04/19/17 09:21 77 143/83 04/19/17 08:00 85 04/19/17 04:00 77 04/19/17 04:00 97.7 89 18 143/83 93 Room Air 04/19/17 00:00 98.2 68 18 128/74 99 Room Air 04/19/17 00:00 66 Intake and Output 04/19/17 04/20/17 19:00 07:00 Intake Total 300 ml Output Total 450 ml Balance -150 ml Intake Oral 300 ml Output Urine Total 450 ml Laboratory Tests 04/19/17 09:40: White Blood Count 12.2H, Red Blood Count 3.85L, Hemoglobin 11.0L, Hematocrit 35.7L, Mean Corpuscular Volume 93, Mean Corpuscular Hemoglobin 28.5, Mean Corpuscular Hemoglobin Concent 30.8L, Red Cell Distribution Width 16.0H, Platelet Count 272, Mean Platelet Volume 8.1, Neutrophils (%) (Auto) 65.7, Lymphocytes (%) (Auto) 21.3, Monocytes (%) (Auto) 9.1, Eosinophils (%) (Auto) 1.8, Basophils (%) (Auto) 2.0, Sodium Level 145, Potassium Level 3.8, Chloride Level 105, Carbon Dioxide Level 30, Anion Gap 10, Blood Urea Nitrogen 20H, Creatinine 1.2, Estimat Glomerular Filtration Rate , Glucose Level 126H, Calcium Level 9.0 Height (Feet): 5 Height (Inches): 7.00 Weight (Pounds): 160 Cardiovascular: normal rate Respiratory/Chest: lungs clear Kortney Huynh MD Apr 19, 2017 20:55
[2017-04-20] VITALS (7 sets, daily range): BP systolic 123–154; BP diastolic 60–85
[2017-04-20] MEDS: Valproic Acid 250mg/5ml Liquid NG SCH ×3 (06:50→17:43)
[2017-04-20] MEDS: LORazepam 1mg tab ORAL SCH ×2 (09:27→17:42)
--- NOTE | 2017-04-20 10:25 | Infectious Diseases Prog Note ---
"Assessment/Plan Assessment/Plan antibiotics : bactrim A 1. klebsiella | proteus | staph aureus UTI 2. renal failure improving 3. dementia P 1. continue bactrim 2. will follow up cultures Subjective ROS Limited/Unobtainable: Yes Allergies: Coded Allergies: No Known Allergies (Unverified , 01/20/13) Objective Vital Signs Last 24 Hour Vital Signs Date Time Temp Pulse Resp B/P (MAP) Pulse Ox O2 Delivery O2 Flow Rate FiO2 04/20/17 09:28 78 154/85 04/20/17 08:00 75 04/20/17 07:35 97.7 78 19 154/85 Room Air 04/20/17 04:00 97.2 74 20 141/66 97 Room Air 04/20/17 04:00 72 04/20/17 00:00 98.2 90 20 143/73 97 Room Air 04/20/17 00:00 88 04/19/17 20:00 98.2 99 19 143/73 97 Room Air 04/19/17 20:00 88 04/19/17 16:00 96.2 96 19 142/73 97 Room Air 04/19/17 16:00 82 04/19/17 12:00 97.4 85 18 130/73 96 Room Air 04/19/17 12:00 82 Height (Feet): 5 Height (Inches): 7.00 Weight (Pounds): 160 Respiratory/Chest: lungs clear Cardiovascular: normal rate, regular rhythm, no gallop/murmur Abdomen: soft, non tender Extremities: no edema Microbiology Date/Time Source Procedure Growth Status 04/17/17 12:30 Blood Blood Culture - Preliminary NO GROWTH AFTER 48 HOURS Resulted 04/17/17 12:15 Blood Blood Culture - Preliminary NO GROWTH AFTER 48 HOURS Resulted 04/17/17 11:55 Urine,Clean Catch Urine Culture - Preliminary Proteus Mirabilis Klebsiella Pneumoniae Esbl Staphylococcus Aureus Resulted 04/17/17 13:40 Rectum VRE Culture - Final NO VANCOMYCIN RESISTANT ENTEROCOCCUS ... Complete SALVADOR MOLINA Apr 20, 2017 10:25"
[2017-04-20] MEDS ORDERED: NS 275ml ONE (10:50)
[2017-04-20] MEDS: Bactrim DS (160mg/800mg) tab ORAL SCH ×2 (11:22→17:42)
--- NOTE | 2017-04-20 16:31 | General Progress Note ---
Assessment/Plan Problem List: (1) UTI (urinary tract infection) ICD Codes: N39.0 - Urinary tract infection, site not specified SNOMED: 70324713 Qualifiers: Qualified Codes: N30.01 - Acute cystitis with hematuria (2) Sepsis ICD Codes: A41.9 - Sepsis, unspecified organism SNOMED: 37080530 Qualifiers: Qualified Codes: A41.9 - Sepsis, unspecified organism (3) PROSPER (acute kidney injury) ICD Codes: N17.9 - Acute kidney failure, unspecified SNOMED: 59290293 Status: progressing Assessment/Plan sepsis and uti leukocytosis is improving abx per id clinically improving demented Subjective ROS Limited/Unobtainable: Yes Allergies: Coded Allergies: No Known Allergies (Unverified , 01/20/13) Objective Last 24 Hour Vital Signs Date Time Temp Pulse Resp B/P (MAP) Pulse Ox O2 Delivery O2 Flow Rate FiO2 04/20/17 14:57 97.7 93 19 127/60 Room Air 04/20/17 12:09 97.9 77 18 129/77 Room Air 04/20/17 12:00 76 04/20/17 09:28 78 154/85 04/20/17 08:00 75 04/20/17 07:35 97.7 78 19 154/85 Room Air 04/20/17 04:00 97.2 74 20 141/66 97 Room Air 04/20/17 04:00 72 04/20/17 00:00 98.2 90 20 143/73 97 Room Air 04/20/17 00:00 88 04/19/17 20:00 98.2 99 19 143/73 97 Room Air 04/19/17 20:00 88 Height (Feet): 5 Height (Inches): 7.00 Weight (Pounds): 160 General Appearance: confused Kortney Huynh MD Apr 20, 2017 16:31
--- NOTE | 2017-04-20 21:55 | General Progress Note ---
Assessment/Plan Assessment/Plan ASSESSMENT AND RECOMMENDATIONS: 1. Leukocytosis, most likely secondary to infectious etiology of urinary tract infection, currently on antibiotics. Has improved. 2. Anemia secondary to chronic disease history. Continue to watch counts. 3. Diabetes mellitus. Continue to maintain blood sugar between 80 and 120. A1c obtained. 4. Hypertension, currently better controlled. 5. Chronic obstructive pulmonary disease. 6. Seizure disorder. Continue to closely monitor. Subjective Allergies: Coded Allergies: No Known Allergies (Unverified , 01/20/13) All Systems: reviewed and negative except above Subjective afebrile, resting in bed Objective Last 24 Hour Vital Signs Date Time Temp Pulse Resp B/P (MAP) Pulse Ox O2 Delivery O2 Flow Rate FiO2 04/20/17 20:17 97.6 78 18 123/62 96 Room Air 04/20/17 16:33 97.5 77 18 127/60 Room Air 04/20/17 16:00 82 04/20/17 14:57 97.7 93 19 127/60 Room Air 04/20/17 12:09 97.9 77 18 129/77 Room Air 04/20/17 12:00 76 04/20/17 09:28 78 154/85 04/20/17 08:00 75 04/20/17 07:35 97.7 78 19 154/85 Room Air 04/20/17 04:00 97.2 74 20 141/66 97 Room Air 04/20/17 04:00 72 04/20/17 00:00 98.2 90 20 143/73 97 Room Air 04/20/17 00:00 88 Intake and Output 04/20/17 04/21/17 19:00 07:00 Output Total 200 ml Balance -200 ml Output Urine Total 200 ml Height (Feet): 5 Height (Inches): 7.00 Weight (Pounds): 160 General Appearance: no apparent distress EENT: normal ENT inspection Neck: normal alignment Cardiovascular: no gallop/murmur Respiratory/Chest: normal breath sounds Abdomen: no organomegaly Edema: mild edema Skin: warm/dry Miguelito Mayen Apr 20, 2017 21:55
[2017-04-20] MEDS: Donepezil 5mg Tab ORAL SCH (23:11)
[2017-04-21 00:50] VITALS: BP 132/76
[2017-04-21 04:29] VITALS: BP 140/70
[2017-04-21] MEDS: Valproic Acid 250mg/5ml Liquid NG SCH ×3 (06:21→16:37)
[2017-04-21 08:00] VITALS: BP 156/69
[2017-04-21 08:41] LABS: BASOPHILS % (AUTO) 0.9 % (0.0-2.0); EOSINOPHILS % (AUTO) 2.7 % (0.0-3.0); MEAN CORPUSCULAR HGB CONC 30.8 G/DL (32.0-36.0); MEAN CORPUSCULAR VOLUME 91 FL (80-99); MEAN PLATELET VOLUME 7.4 FL (6.5-10.1); MONOCYTES % (AUTO) 11.6 % (1.0-10.0); NEUTROPHILS % (AUTO) 62.8 % (45.0-75.0); PLATELET COUNT 265 K/UL (150-450); RED BLOOD COUNT 4.28 M/UL (4.70-6.10); RED CELL DISTRIBUTION WIDTH 15.4 % (11.6-14.8); WHITE BLOOD COUNT 8.5 K/UL (4.8-10.8)
--- NOTE | 2017-04-21 08:50 | Infectious Diseases Prog Note ---
Assessment/Plan Assessment/Plan A; Complicated UTI ARF, Chronic kidney disease Alzheimer dementia P; Continue Bactrim Change of suprapubic catheter by urologist Subjective ROS Limited/Unobtainable: Yes Allergies: Coded Allergies: No Known Allergies (Unverified , 01/20/13) Objective Vital Signs Last 24 Hour Vital Signs Date Time Temp Pulse Resp B/P (MAP) Pulse Ox O2 Delivery O2 Flow Rate FiO2 04/21/17 04:29 96.4 68 18 140/70 98 Room Air 04/21/17 04:00 69 04/21/17 00:50 97.5 74 18 132/76 96 Room Air 04/21/17 00:00 92 04/20/17 20:17 97.6 78 18 123/62 96 Room Air 04/20/17 20:00 87 04/20/17 16:33 97.5 77 18 127/60 Room Air 04/20/17 16:00 82 04/20/17 14:57 97.7 93 19 127/60 Room Air 04/20/17 12:09 97.9 77 18 129/77 Room Air 04/20/17 12:00 76 04/20/17 09:28 78 154/85 Height (Feet): 5 Height (Inches): 7.00 Weight (Pounds): 160 General Appearance: no acute distress HEENT: mucous membranes moist Respiratory/Chest: lungs clear Cardiovascular: normal rate Abdomen: soft, non tender Genitourinary: other - Suprapubic catheter Extremities: no edema Neurologic/Psychiatric: disoriented Laboratory Tests Test 04/21/17 08:20 White Blood Count 8.5 K/UL (4.8-10.8) Red Blood Count 4.28 M/UL (4.70-6.10) L Hemoglobin 12.0 G/DL (14.2-18.0) L Hematocrit 38.9 % (42.0-52.0) L Mean Corpuscular Volume 91 FL (80-99) Mean Corpuscular Hemoglobin 28.0 PG (27.0-31.0) Mean Corpuscular Hemoglobin Concent 30.8 G/DL (32.0-36.0) L Red Cell Distribution Width 15.4 % (11.6-14.8) H Platelet Count 265 K/UL (150-450) Mean Platelet Volume 7.4 FL (6.5-10.1) Neutrophils (%) (Auto) 62.8 % (45.0-75.0) Lymphocytes (%) (Auto) 22.0 % (20.0-45.0) Monocytes (%) (Auto) 11.6 % (1.0-10.0) H Eosinophils (%) (Auto) 2.7 % (0.0-3.0) Basophils (%) (Auto) 0.9 % (0.0-2.0) Sodium Level Pending Potassium Level Pending Chloride Level Pending Carbon Dioxide Level Pending Blood Urea Nitrogen Pending Creatinine Pending Estimat Glomerular Filtration Rate Pending Glucose Level Pending Calcium Level Pending Total Bilirubin Pending Aspartate Amino Transf (AST/SGOT) Pending Alanine Aminotransferase (ALT/SGPT) Pending Alkaline Phosphatase Pending Total Protein Pending Albumin Pending Globulin Pending Current Medications Medications (Trade) Dose Ordered Sig/[place] Route PRN Reason Start Time Stop Time Status Last Admin Dose Admin Acetaminophen (Tylenol) 650 mg Q6H PRN ORAL Mild Pain/Temp > 100.5 04/17/17 17:30 05/17/17 17:29 Amlodipine Besylate (Norvasc) 5 mg DAILY ORAL 04/18/17 09:00 05/18/17 08:59 04/20/17 09:28 Donepezil HCl (Aricept) 5 mg QHS ORAL 04/17/17 21:00 05/17/17 20:59 04/20/17 23:11 Ferrous Sulfate (Feosol) 325 mg DAILY ORAL 04/18/17 09:00 05/18/17 08:59 04/20/17 09:27 Levetiracetam (Keppra) 750 mg Q12HR ORAL 04/17/17 21:00 05/17/17 20:59 04/20/17 23:11 Lorazepam (Ativan) 1 mg BID ORAL 04/17/17 18:00 04/24/17 17:59 04/20/17 17:42 Mirtazapine (Remeron) 7.5 mg BEDTIME ORAL 04/17/17 21:00 05/17/17 20:59 04/20/17 23:12 Multivitamins (Multivitamins) 1 tab DAILY ORAL 04/18/17 09:00 05/18/17 08:59 04/20/17 09:27 Pantoprazole (Protonix) 40 mg BEFORE BREAKFAST ORAL 04/18/17 06:30 05/18/17 06:29 04/21/17 06:21 Quetiapine Fumarate (SEROquel) 12.5 mg BEDTIME ORAL 04/17/17 21:00 05/17/17 20:59 04/20/17 23:11 Trimethoprim/ Sulfamethoxazole (Bactrim-DS) 1 ea TWICE A DAY ORAL 04/20/17 11:00 04/27/17 10:59 04/20/17 17:42 Valproic Acid (Depakene) 500 mg TIAC NG 04/18/17 08:30 05/18/17 08:29 04/21/17 06:21 DANNI DAO Apr 21, 2017 08:50
[2017-04-21 09:02] LABS: ALANINE AMINOTRANSFERASE 25 U/L (12-78); ALBUMIN/GLOBULIN RATIO 0.4 (1.0-2.7); ANION GAP 9 mmol/L (5-15); ASPARTATE AMINO TRANSFERASE 17 U/L (15-37); CARBON DIOXIDE 29 MMOL/L (21-32); CHLORIDE 102 MMOL/L (98-107); CREATININE 1.3 MG/DL (0.55-1.30); POTASSIUM 3.6 MMOL/L (3.5-5.1); SODIUM 140 MMOL/L (136-145); TOTAL PROTEIN 8.4 G/DL (6.4-8.2)
[2017-04-21] MEDS: Bactrim DS (160mg/800mg) tab ORAL SCH ×2 (09:30→18:05)
[2017-04-21] MEDS: LORazepam 1mg tab ORAL SCH ×2 (09:30→18:05)
[2017-04-21 12:39] VITALS: BP 130/76
--- NOTE | 2017-04-21 15:48 | Cardiology Report ---
APPROVED REPORT EKG Measurement Heart [id number] [id number] Sinus tachy[address] Nonspecific ST abnormality Abnormal ECG
[2017-04-21 16:29] VITALS: BP 130/80
[2017-04-21 20:12] VITALS: BP 106/60
--- NOTE | 2017-04-21 21:31 | General Progress Note ---
Assessment/Plan Problem List: (1) UTI (urinary tract infection) ICD Codes: N39.0 - Urinary tract infection, site not specified SNOMED: 03935885 Qualifiers: Qualified Codes: N30.01 - Acute cystitis with hematuria (2) Sepsis ICD Codes: A41.9 - Sepsis, unspecified organism SNOMED: 03306546 Qualifiers: Qualified Codes: A41.9 - Sepsis, unspecified organism (3) PROSPER (acute kidney injury) ICD Codes: N17.9 - Acute kidney failure, unspecified SNOMED: 92894428 Status: progressing Assessment/Plan sepsis and uti leukocytosis is improving abx per id reviewed chart and labs afebrile Subjective ROS Limited/Unobtainable: Yes Constitutional: Reports: no symptoms Allergies: Coded Allergies: No Known Allergies (Unverified , 01/20/13) Objective Last 24 Hour Vital Signs Date Time Temp Pulse Resp B/P (MAP) Pulse Ox O2 Delivery O2 Flow Rate FiO2 04/21/17 20:12 98.4 84 18 106/60 96 Room Air 04/21/17 16:29 97.3 95 20 130/80 97 Room Air 04/21/17 16:00 82 04/21/17 12:39 97.4 90 20 130/76 98 Room Air 04/21/17 12:00 81 04/21/17 09:29 73 156/69 04/21/17 08:00 70 04/21/17 08:00 97.5 73 20 156/69 93 Room Air 04/21/17 04:29 96.4 68 18 140/70 98 Room Air 04/21/17 04:00 69 04/21/17 00:50 97.5 74 18 132/76 96 Room Air 04/21/17 00:00 92 Intake and Output 04/21/17 04/22/17 19:00 07:00 Intake Total 540 ml Output Total 700 ml Balance -160 ml Intake Oral 540 ml Output Urine Total 700 ml Laboratory Tests 04/21/17 08:20: White Blood Count 8.5, Red Blood Count 4.28L, Hemoglobin 12.0L, Hematocrit 38.9L , Mean Corpuscular Volume 91, Mean Corpuscular Hemoglobin 28.0, Mean Corpuscular Hemoglobin Concent 30.8L, Red Cell Distribution Width 15.4H, Platelet Count 265, Mean Platelet Volume 7.4, Neutrophils (%) (Auto) 62.8, Lymphocytes (%) (Auto) 22.0, Monocytes (%) (Auto) 11.6H, Eosinophils (%) (Auto) 2.7, Basophils (%) (Auto) 0.9, Sodium Level 140, Potassium Level 3.6, Chloride Level 102, Carbon Dioxide Level 29, Anion Gap 9, Blood Urea Nitrogen 15, Creatinine 1.3, Estimat Glomerular Filtration Rate , Glucose Level 129H, Calcium Level 9.0, Total Bilirubin 0.3, Aspartate Amino Transf (AST/SGOT) 17, Alanine Aminotransferase (ALT/SGPT) 25, Alkaline Phosphatase 61, Total Protein 8.4H, Albumin 2.6L, Globulin 5.8, Albumin/Globulin Ratio 0.4L Height (Feet): 5 Height (Inches): 7.00 Weight (Pounds): 160 Cardiovascular: normal rate Respiratory/Chest: lungs clear Abdomen: soft Kortney Huynh MD Apr 21, 2017 21:31
[2017-04-21] MEDS: Donepezil 5mg Tab ORAL SCH (21:52)
--- NOTE | 2017-04-21 22:32 | General Progress Note ---
Assessment/Plan Assessment/Plan ASSESSMENT AND RECOMMENDATIONS: 1. Leukocytosis, most likely secondary to infectious etiology of urinary tract infection, currently on antibiotics. Has improved. -> wbc count now normalized 2. Anemia secondary to chronic disease history. Continue to watch counts. 3. Diabetes mellitus. Continue to maintain blood sugar between 80 and 120. A1c obtained. 4. Hypertension, currently better controlled. 5. Chronic obstructive pulmonary disease. 6. Seizure disorder. Continue to closely monitor. Subjective Allergies: Coded Allergies: No Known Allergies (Unverified , 01/20/13) All Systems: reviewed and negative except above Subjective NAD Objective Last 24 Hour Vital Signs Date Time Temp Pulse Resp B/P (MAP) Pulse Ox O2 Delivery O2 Flow Rate FiO2 04/21/17 20:12 98.4 84 18 106/60 96 Room Air 04/21/17 20:00 83 04/21/17 16:29 97.3 95 20 130/80 97 Room Air 04/21/17 16:00 82 04/21/17 12:39 97.4 90 20 130/76 98 Room Air 04/21/17 12:00 81 04/21/17 09:29 73 156/69 04/21/17 08:00 70 04/21/17 08:00 97.5 73 20 156/69 93 Room Air 04/21/17 04:29 96.4 68 18 140/70 98 Room Air 04/21/17 04:00 69 04/21/17 00:50 97.5 74 18 132/76 96 Room Air 04/21/17 00:00 92 Intake and Output 04/21/17 04/22/17 19:00 07:00 Intake Total 540 ml Output Total 700 ml Balance -160 ml Intake Oral 540 ml Output Urine Total 700 ml Laboratory Tests 04/21/17 08:20: White Blood Count 8.5, Red Blood Count 4.28L, Hemoglobin 12.0L, Hematocrit 38.9L , Mean Corpuscular Volume 91, Mean Corpuscular Hemoglobin 28.0, Mean Corpuscular Hemoglobin Concent 30.8L, Red Cell Distribution Width 15.4H, Platelet Count 265, Mean Platelet Volume 7.4, Neutrophils (%) (Auto) 62.8, Lymphocytes (%) (Auto) 22.0, Monocytes (%) (Auto) 11.6H, Eosinophils (%) (Auto) 2.7, Basophils (%) (Auto) 0.9, Sodium Level 140, Potassium Level 3.6, Chloride Level 102, Carbon Dioxide Level 29, Anion Gap 9, Blood Urea Nitrogen 15, Creatinine 1.3, Estimat Glomerular Filtration Rate , Glucose Level 129H, Calcium Level 9.0, Total Bilirubin 0.3, Aspartate Amino Transf (AST/SGOT) 17, Alanine Aminotransferase (ALT/SGPT) 25, Alkaline Phosphatase 61, Total Protein 8.4H, Albumin 2.6L, Globulin 5.8, Albumin/Globulin Ratio 0.4L Height (Feet): 5 Height (Inches): 7.00 Weight (Pounds): 160 General Appearance: no apparent distress EENT: normal ENT inspection Neck: normal alignment Cardiovascular: normal peripheral pulses Extremities: non-tender Neurologic: metrology specialist II-XII grossly normal Skin: normal pigmentation Miguelito Mayen Apr 21, 2017 22:32
[2017-04-22 00:10] VITALS: BP 130/60
[2017-04-22 04:18] VITALS: BP 140/62
[2017-04-22] MEDS: Valproic Acid 250mg/5ml Liquid NG SCH ×2 (06:36→11:27)
[2017-04-22] MEDS: Bactrim DS (160mg/800mg) tab ORAL SCH (08:38)
[2017-04-22] MEDS: LORazepam 1mg tab ORAL SCH (08:39)
[2017-04-22 08:43] VITALS: BP 145/74
--- NOTE | 2017-04-22 09:09 | Infectious Diseases Prog Note ---
Assessment/Plan Assessment/Plan A; Complicated UTI ARF, Chronic kidney disease Alzheimer dementia P; Continue Bactrim X 5 days Change of suprapubic catheter by urologist Subjective ROS Limited/Unobtainable: Yes Allergies: Coded Allergies: No Known Allergies (Unverified , 01/20/13) Objective Vital Signs Last 24 Hour Vital Signs Date Time Temp Pulse Resp B/P (MAP) Pulse Ox O2 Delivery O2 Flow Rate FiO2 04/22/17 08:43 97.1 73 18 145/74 Room Air 04/22/17 08:39 73 145/74 04/22/17 04:18 97.9 69 18 140/62 100 Room Air 04/22/17 04:00 68 04/22/17 00:10 97.7 78 18 130/60 98 Room Air 04/22/17 00:08 97.7 04/22/17 00:00 74 04/21/17 20:12 98.4 84 18 106/60 96 Room Air 04/21/17 20:00 83 04/21/17 16:29 97.3 95 20 130/80 97 Room Air 04/21/17 16:00 82 04/21/17 12:39 97.4 90 20 130/76 98 Room Air 04/21/17 12:00 81 04/21/17 09:29 73 156/69 Height (Feet): 5 Height (Inches): 7.00 Weight (Pounds): 160 General Appearance: no acute distress HEENT: mucous membranes moist Respiratory/Chest: lungs clear Cardiovascular: normal rate Abdomen: soft, non tender Genitourinary: other - Suprapubic catheter Extremities: no edema Neurologic/Psychiatric: responsive Current Medications Medications (Trade) Dose Ordered Sig/[place] Route PRN Reason Start Time Stop Time Status Last Admin Dose Admin Acetaminophen (Tylenol) 650 mg Q6H PRN ORAL Mild Pain/Temp > 100.5 04/17/17 17:30 05/17/17 17:29 Amlodipine Besylate (Norvasc) 5 mg DAILY ORAL 04/18/17 09:00 05/18/17 08:59 04/22/17 08:39 Donepezil HCl (Aricept) 5 mg QHS ORAL 04/17/17 21:00 05/17/17 20:59 04/21/17 21:52 Ferrous Sulfate (Feosol) 325 mg DAILY ORAL 04/18/17 09:00 05/18/17 08:59 04/22/17 08:38 Levetiracetam (Keppra) 750 mg Q12HR ORAL 04/17/17 21:00 05/17/17 20:59 04/22/17 08:38 Lorazepam (Ativan) 1 mg BID ORAL 04/17/17 18:00 04/24/17 17:59 04/22/17 08:39 Mirtazapine (Remeron) 7.5 mg BEDTIME ORAL 04/17/17 21:00 05/17/17 20:59 04/21/17 21:52 Multivitamins (Multivitamins) 1 tab DAILY ORAL 04/18/17 09:00 05/18/17 08:59 04/22/17 08:38 Pantoprazole (Protonix) 40 mg BEFORE BREAKFAST ORAL 04/18/17 06:30 05/18/17 06:29 04/22/17 06:36 Quetiapine Fumarate (SEROquel) 12.5 mg BEDTIME ORAL 04/17/17 21:00 05/17/17 20:59 04/21/17 21:52 Trimethoprim/ Sulfamethoxazole (Bactrim-DS) 1 ea TWICE A DAY ORAL 04/20/17 11:00 04/27/17 10:59 04/22/17 08:38 Valproic Acid (Depakene) 500 mg TIAC NG 04/18/17 08:30 05/18/17 08:29 04/22/17 06:36 DANNI DAO Apr 22, 2017 09:08
[2017-04-22] MEDS ORDERED: BACTRIM-DS1 EA ORAL (10:26)
--- NOTE | 2017-04-22 11:34 | Wound Care Consultation ---
Wound Assessment Wound Assessment #1: Wound Number: 1 Wound Present on Admission: Yes New Wound: No Status Change of Wound: No Wound Location Body Site Modif: mid Wound Location Body Site: sacral Wound Type: pressure ulcer [place] Test: Does not Glen Pressure Ulcer Stage: Unstageable Wound Thickness: Full Thickness Wound Length: 2.5 Wound Width: 2.5 Wound Depth: utd Percent of Wound [place]/Red: 70 Percent of Wound Bed Yellow/Wh: 30 Wound Drainage Description: Serosanguineous Wound Drainage Amount: Moderate Wound Drainage Odor: None/Absent Tissue Surrounding Wound: Erythemic Wound General Appearance: Reddened - yellow, Draining Wound Assessment #2: Wound Number: 2 Wound Present on Admission: Yes New Wound: No Status Change of Wound: No Wound Location Body Site Modif: right Wound Location Body Site: heel Wound Type: pressure ulcer [place] Test: Does not [place] Pressure Ulcer Stage: Deep Tissue Injury Wound Thickness: Full Thickness Wound Length: 2.5 Wound Width: 2.0 Wound Depth: utd Percent of Wound Purple/Maroon: 100 Wound Drainage Amount: None Wound Drainage Odor: None/Absent Tissue Surrounding Wound: Intact Wound General Appearance: Reddened - maroon Wound Comment #1 Sacral unstageable pressure ulcer. Noted with good progress. Will cont the same wound care treatment. #2 Right heel DTI pressure ulcer. Skin still intact Cont same recommendation and treatment below. Recommendation - Sacral unstageable pressure ulcer, Cleanse with saline, pat dry, apply [place]rah[place] gel to wound bed, cover with Biatain silicone drg daily and PRN soiled/dislodged -Local wound care per protocol for DTI pressure ulcer -Keep clean and dry -Turn and reposition -Optimize nutrition -Offload both heels -Heel protector on both heels -Low air loss mattress -Assess and f/u accordingly for any changes HAYLEE HORVATH RN Apr 22, 2017 11:34
[2017-04-22 12:17] VITALS: BP 118/61
--- NOTE | 2017-04-22 12:56 | Consultation ---
History of Present Illness General Date patient seen: Apr 22, 2017 Time patient seen: 12:53 Chief Complaint: Abnormal Labs Referring physician: Amina Reason for Consultation: Resistant UTI Present Illness HPI Pleasant but demented patient admitted for UTI mgmt. FDC SP tube in place. Allergies: Coded Allergies: No Known Allergies (Unverified , 01/20/13) Medication History Scheduled Acetaminophen (Tylenol 8 Hour), 650 MG ORAL Q6HR, (Reported) Docusate Sodium* (Dss*), 100 MG ORAL DAILY, (Reported) Donepezil Hcl* (Aricept*), 5 MG ORAL DAILY, (Reported) Ferrous Sulfate* (Ferrous Sulfate*), 325 MG ORAL DAILY, (Reported) Lisinopril (Lisinopril*), 10 MG ORAL DAILY, (Reported) Mirtazapine* (Mirtazapine*), 7.5 MG ORAL BEDTIME, (Reported) Mupirocin (Mupirocin), 1 APPLIC TOPIC BID, (Reported) Trimethoprim/Sulfamethoxazole (Bactrim Ds Tablet), 1 TAB ORAL TWICE A DAY, ( Reported) Trimethoprim/Sulfamethoxazole (Bactrim Ds Tablet), 1 TAB ORAL TWICE A DAY, ( Reported) Scheduled PRN Lorazepam* (Ativan*), 1 MG PO Q6HR PRN for Agitation, (Reported) Miscellaneous Medications Valproate Sodium (Depakene), 250 MG PO, (Reported) Patient History Limited by: language barrier, medical condition History Provided By: Medical Record, PMD Healthcare decision maker Resuscitation status Full Code Advanced Directive on File Past Medical/Surgical History Past Medical/Surgical History: (1) Bronchitis (2) ARF (acute renal failure) (3) Dementia arising in the senium and presenium (4) Diabetes Review of Systems All Other Systems: negative except mentioned in HPI Physical Exam General Appearance: no apparent distress HEENT: atraumatic Neck: supple Cardiovascular/Chest: normal rate Abdomen: soft, other - SP tube in place, site c/d/i Neurologic: alert Last 24 Hour Vital Signs Date Time Temp Pulse Resp B/P (MAP) Pulse Ox O2 Delivery O2 Flow Rate FiO2 04/22/17 12:17 97.7 70 18 118/61 Room Air 04/22/17 08:43 97.1 73 18 145/74 Room Air 04/22/17 08:39 73 145/74 04/22/17 08:00 76 04/22/17 04:18 97.9 69 18 140/62 100 Room Air 04/22/17 04:00 68 04/22/17 00:10 97.7 78 18 130/60 98 Room Air 04/22/17 00:08 97.7 04/22/17 00:00 74 04/21/17 20:12 98.4 84 18 106/60 96 Room Air 04/21/17 20:00 83 04/21/17 16:29 97.3 95 20 130/80 97 Room Air 04/21/17 16:00 82 Height (Feet): 5 Height (Inches): 7.00 Weight (Pounds): 160 Medications Current Medications Medications (Trade) Dose Ordered Sig/[place] Route PRN Reason Start Time Stop Time Status Last Admin Dose Admin Acetaminophen (Tylenol) 650 mg Q6H PRN ORAL Mild Pain/Temp > 100.5 04/17/17 17:30 05/17/17 17:29 Amlodipine Besylate (Norvasc) 5 mg DAILY ORAL 04/18/17 09:00 05/18/17 08:59 04/22/17 08:39 Donepezil HCl (Aricept) 5 mg QHS ORAL 04/17/17 21:00 05/17/17 20:59 04/21/17 21:52 Ferrous Sulfate (Feosol) 325 mg DAILY ORAL 04/18/17 09:00 05/18/17 08:59 04/22/17 08:38 Levetiracetam (Keppra) 750 mg Q12HR ORAL 04/17/17 21:00 05/17/17 20:59 04/22/17 08:38 Lorazepam (Ativan) 1 mg BID ORAL 04/17/17 18:00 04/24/17 17:59 04/22/17 08:39 Mirtazapine (Remeron) 7.5 mg BEDTIME ORAL 04/17/17 21:00 05/17/17 20:59 04/21/17 21:52 Multivitamins (Multivitamins) 1 tab DAILY ORAL 04/18/17 09:00 05/18/17 08:59 04/22/17 08:38 Pantoprazole (Protonix) 40 mg BEFORE BREAKFAST ORAL 04/18/17 06:30 05/18/17 06:29 04/22/17 06:36 Quetiapine Fumarate (SEROquel) 12.5 mg BEDTIME ORAL 04/17/17 21:00 05/17/17 20:59 04/21/17 21:52 Trimethoprim/ Sulfamethoxazole (Bactrim-DS) 1 ea TWICE A DAY ORAL 04/20/17 11:00 04/27/17 10:59 04/22/17 08:38 Valproic Acid (Depakene) 500 mg TIAC NG 04/18/17 08:30 05/18/17 08:29 04/22/17 11:27 Objective Narrative SP tube change: Under sterile conditions old 16 mong[place] SP tube removed and new one replaced. Irrigated bladder, patient experienced spasms, but irrigated out some debris. Assessment/Plan Status: stable Assessment/Plan 77 yo male with UTI, old SP tube removed, new one in place. 1. recommend SP tube changes every 6 weeks. Raad Honeycutt M.D. Apr 22, 2017 12:56
[2017-04-22 15:52] VITALS: BP 128/65
[2017-04-22] MEDS ORDERED: NS 275ml ONE (16:06)
--- NOTE | 2017-04-22 16:06 | General Progress Note ---
Assessment/Plan Assessment/Plan ASSESSMENT AND RECOMMENDATIONS: 1. Leukocytosis, most likely secondary to infectious etiology of urinary tract infection, currently on antibiotics. Has improved. --> wbc count now normalized 2. Anemia secondary to chronic disease history. Continue to watch counts. --> hgb goal above 8 3. Diabetes mellitus. Continue to maintain blood sugar between 80 and 120. A1c obtained. 4. Hypertension, currently better controlled. 5. Chronic obstructive pulmonary disease. 6. Seizure disorder. Continue to closely monitor. Subjective Allergies: Coded Allergies: No Known Allergies (Unverified , 01/20/13) All Systems: reviewed and negative except above Subjective no events overnight Objective Last 24 Hour Vital Signs Date Time Temp Pulse Resp B/P (MAP) Pulse Ox O2 Delivery O2 Flow Rate FiO2 04/22/17 15:52 97.5 81 19 128/65 Room Air 04/22/17 12:17 97.7 70 18 118/61 Room Air 04/22/17 12:00 76 04/22/17 08:43 97.1 73 18 145/74 Room Air 04/22/17 08:39 73 145/74 04/22/17 08:00 76 04/22/17 04:18 97.9 69 18 140/62 100 Room Air 04/22/17 04:00 68 04/22/17 00:10 97.7 78 18 130/60 98 Room Air 04/22/17 00:08 97.7 04/22/17 00:00 74 04/21/17 20:12 98.4 84 18 106/60 96 Room Air 04/21/17 20:00 83 04/21/17 16:29 97.3 95 20 130/80 97 Room Air Height (Feet): 5 Height (Inches): 7.00 Weight (Pounds): 160 General Appearance: no apparent distress EENT: normal ENT inspection Neck: normal alignment Cardiovascular: normal peripheral pulses Respiratory/Chest: decreased breath sounds Extremities: non-tender Skin: normal pigmentation Miguelito Mayen Apr 22, 2017 16:06
--- NOTE | 2017-04-23 12:59 | Discharge Summary ---
Discharge Summary Hospital Course Date of Admission Apr 17, 2017 at 12:47 Date of Discharge Apr 22, 2017 at 16:07 Admitting Diagnosis resistant UTI HPI Nghia Feliciano is a 77 year old male who was admitted on Apr 17, 2017 at 12:47 for Resistant Urinary Tract Infection Hospital Course dc summary #[id number] Discharge Medications Continued Medications: Acetaminophen (Tylenol 8 Hour) 650 Mg Tablet.er 650 MG ORAL Q6HR for For Pain, TAB 0 Refills regular tylenol Docusate Sodium* (Dss*) 100 Mg Capsule 100 MG ORAL DAILY, CAP hold for diarrhea Donepezil Hcl* (Aricept*) 5 Mg Tablet 5 MG ORAL DAILY, TAB Ferrous Sulfate* (Ferrous Sulfate*) 325 Mg Tablet 325 MG ORAL DAILY, #30 TAB 0 Refills Lisinopril (Lisinopril*) 20 Mg Tablet 10 MG ORAL DAILY, TAB 0 Refills Lorazepam* (Ativan*) 1 Mg Tablet 1 MG PO Q6HR PRN for Agitation, TAB Mirtazapine* (Mirtazapine*) 7.5 Mg Tablet 7.5 MG ORAL BEDTIME, TAB Mupirocin (Mupirocin) 22 Gm Oint...g. 1 APPLIC TOPIC BID for 10 Days, GM Apply to each nostril Trimethoprim/Sulfamethoxazole (Bactrim Ds Tablet) 1 Each Tablet 1 TAB ORAL TWICE A DAY for 5 Days, TAB Valproate Sodium (Depakene) 250 Mg/5 Ml Solution 250 MG PO Discharge Condition Upon Discharge: stable Discharge Disposition Patient was discharged to SNF/Subacute Facility(03) Discharge Diagnoses: Discharge Instructions Discharge Instructions Special Instructions I have been assigned to complete a D/C Summary on this account. I was not involved in the patient management Neyda Pak NP ([facility]) Apr 23, 2017 12:59
--- NOTE | 2017-04-23 22:30 | Discharge Summary 2 SIG ---
DATE OF ADMISSION: 04/17/2017 DATE OF DISCHARGE: 04/22/2017 REASON FOR ADMISSION: 77-year-old male, resident of snf facility,with past medical history of hypertension, COPD, intracranial hemorrhage, seizure disorder, and dementia. was sent to ED for evaluation due to the evidence of UTI. Urine culture, obtained at the facility, grew Proteus and MRSA. Workup in the emergency department revealed leukocytosis WBC- 25.4, elevated lactic acid- 3.9, BUN-29, and creatinine -1.4. EKG showed sinus tachycardia. Urinalysis with gross evidence of UTI. The patient was admitted for sepsis, UTI, and acute kidney injury. HOSPITAL STAY: The patient was admitted. Septic workup was initiated in the emergency room. The patient received fluid resuscitation. On the floor, the patient started on IV fluids and empiric antibiotics. ID followed. Urine culture grew Proteus Klebsiella, ESBL, and MRSA. According to ID doctor who managed antibiotic regimen, the patient had complicated urinary tract infection. The patient was on IV antibiotics, which changed to oral prior to discharge to complete the course. Urology seen the patient for long-term suprapubic catheter and urinary tract infection. Suprapubic catheter was changed by Urology. Bladder was irrigated. Some debris were removed. Urologist recommended to change suprapubic catheter every six weeks. Renal parameters were closely monitored. Electrolytes replaced as needed. Nephrotoxics were avoided. Acute kidney injury resolved likely secondary to dehydration. BUN down to 15 and creatinine down to 1.3. Blood pressure was managed with calcium-channel young and was stable. Supplemental oxygen provided as needed to keep saturation above 92%. Pulse oximetry was stable on room air. Seizure precaution maintained. Keppra resumed. No evidence of seizure activity while in the hospital. Wound care provided as per wound care nurse recommendation for sacral decubitus, un-stageable and right heel pressure ulcer, deep tissue injury with intact skin, both present on admission. The patient was clinically improving. Leukocytosis resolved. Creatinine down to baseline. Troponin negative. Chest x-ray negative. The patient was stable for discharge back to snf facility to complete antibiotics. FINAL DIAGNOSES: 1. Sepsis. 2. Complicated urinary tract infection with Proteus, Klebsiella Extended Spectrum Beta-Lactamases, and Methicillin-resistant Staphylococcus aureus. 3. Acute kidney injury on chronic kidney disease. 4. Dementia. 5. Hypertension. 6. Seizure disorder. 7. Chronic obstructive pulmonary disease. 8. Sacral decubitus, un-stageable, present on admission. 9. Right heel deep tissue injury pressure ulcer, present on admission. 10. Dementia. DISCHARGE MEDICATIONS: See medication reconciliation list. DISCHARGE INSTRUCTIONS: The patient discharged to snf facility. FOLLOWUP: Followup with medical doctor at the facility. Kortney Huynh M.D. I have been assigned to dictate discharge summary on this account and I was not involved in the patient's management. Neyda WickHudson Valley HospitalEddie N.PDhruv DR: Zachariah JOB#: [id number] CC: LEONID
== END 2017-04-22 16:07 | DRG 872 ==
LOC: EDBD 11:36 → EMR 12:40 → 2E 12:47 → EDBEDREQ 13:04 → 2E 14:32
DX: A41.9 Sepsis, unspecified organism (principal); N17.9 Acute kidney failure, unspecified; L89.150 Pressure ulcer of sacral region, unstageable; D63.8 Anemia in other chronic diseases classified elsewhere; E11.9 Type 2 diabetes mellitus without complications; I12.9 Hypertensive chronic kidney disease with stage 1 through stage 4 chronic kidney disease, or unspecified chronic kidney disease; N39.0 Urinary tract infection, site not specified; G30.9 Alzheimer's disease, unspecified; J44.9 Chronic obstructive pulmonary disease, unspecified; G40.909 Epilepsy, unspecified, not intractable, without status epilepticus; B96.1 Klebsiella pneumoniae [K. pneumoniae] as the cause of diseases classified elsewhere; Z16.12 Extended spectrum beta lactamase (ESBL) resistance; B96.4 Proteus (mirabilis) (morganii) as the cause of diseases classified elsewhere; B95.62 Methicillin resistant Staphylococcus aureus infection as the cause of diseases classified elsewhere; N18.9 Chronic kidney disease, unspecified; L89.610 Pressure ulcer of right heel, unstageable; Z43.5 Encounter for attention to cystostomy; F02.80 Dementia in other diseases classified elsewhere, unspecified severity, without behavioral disturbance, psychotic disturbance, mood disturbance, and anxiety
CPT/HCPCS: 36415; 71010; 80048; 80053; 80299; 81003; 82550; 82553; 83605; 84484; 85007; 85025; 87040; 87081; 87086; 87181; 93005; 99285